=== PATIENT | female | born 1945 | race Caucasian/White ===

== ENCOUNTER 2021-02-20 04:37 | Emergency (ER) | payer BC, MEDICARE ==
[2021-02-20] MEDS ORDERED: Ondansetron 4 MG/2 ML SDV IVPUSH ONE (04:57)
[2021-02-20] MEDS ORDERED: Metoprolol Tartrate 25 MG Tab PO ONE (05:13)
--- NOTE | 2021-02-20 05:36 | EDM.PDOC ---
ED HPI GENERAL MEDICAL PROBLEM - General Chief Complaint: General Stated Complaint: DIZZY NAUSEAU Time Seen by Provider: 02/20/21 04:50 Source of Information: Reports: Patient, Family History Limitations: Reports: No Limitations - History of Present Illness INITIAL COMMENTS - FREE TEXT/NARRATIVE: Patient presented to the ED because of UE tremors. She said her hands and arms just shake non-stop and is bothering her. She denies having any motor or sensory deficits. She said this has been going on for years but is not beeing treated. 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: Musculoskeletal History: Reports: Arthritis - Past Surgical History Cardiovascular Surgical History: Reports: Coronary Artery Bypass Other Cardiovascular Surgeries/Procedures: 3 vessel in 97 Social & Family History - Tobacco Use Tobacco Use Status *Q: Current Every Day Tobacco User Years of Tobacco use: 50 Packs/Tins Daily: 0.2 - Caffeine Use Caffeine Use: Reports: Coffee - Recreational Drug Use Recreational Drug Use: No ED ROS GENERAL - Review of Systems Review Of Systems: See Below Constitutional: Reports: No Symptoms HEENT: Reports: No Symptoms Respiratory: Reports: No Symptoms Cardiovascular: Reports: No Symptoms Endocrine: Reports: No Symptoms GI/Abdominal: Reports: No Symptoms : Reports: No Symptoms Musculoskeletal: Reports: No Symptoms Skin: Reports: No Symptoms Neurological: Reports: Tremors Psychiatric: Reports: No Symptoms Hematologic/Lymphatic: Reports: No Symptoms Immunologic: Reports: No Symptoms ED EXAM, GENERAL - Physical Exam Exam: See Below Exam Limited By: No Limitations General Appearance: Alert, No Apparent Distress Ears: Normal External Exam, Normal Canal Nose: Normal Inspection, Normal Mucosa, No Blood Throat/Mouth: Normal Inspection, Normal Lips, Normal Teeth, Normal Gums Head: Atraumatic, Normocephalic Neck: Normal Inspection, Supple, Non-Tender, Full Range of Motion Respiratory/Chest: No Respiratory Distress, Lungs Clear, Normal Breath Sounds, No Accessory Muscle Use, Chest Non-Tender Cardiovascular: Normal Peripheral Pulses, Regular Rate, Rhythm, No Edema, No Gallop, No JVD, No Murmur, No Rub GI/Abdominal: Normal Bowel Sounds, Soft, Non-Tender, No Organomegaly, No Distention, No Abnormal Bruit Back Exam: Normal Inspection, Full Range of Motion Extremities: Normal Inspection, Non-Tender, No Pedal Edema, Normal Capillary Refill, Other Neurological: Alert, Oriented, CN II-XII Intact, Other (tremors) Psychiatric: Normal Affect #1 Interpretation EKG Date: 02/20/21 Time: 04:38 Rhythm: Other (Sinus Tach) Rate (Beats/Min): 102 [place]: Normal P-Wave: Present QRS: Normal ST-T: Normal QT: Normal PA/PQ Interval: 179 Comparison: No Change EKG Interpretation Comments: Sinus Tach Course - Vital Signs Text/Narrative:: Lab and EKG result was reviewed with patient and her family Mysoline 100 mg PO x1 Klonopin 0.5 mg PO x1 Metoprolol tartrate 25 mg PO x1 NS 1 L bolus Last Recorded V/S: Last Vital Signs Temp 37.2 C 02/20/21 04:40 Pulse 88 02/20/21 05:22 Resp 28 H 02/20/21 04:40 BP 137/111 H 02/20/21 05:22 Pulse Ox 100 02/20/21 04:40 - Orders/Labs/Meds Orders: Active Orders 24 hr Category Date Time Status EKG 12 Lead [EK] Routine Ther 02/20/21 04:47 Ordered Labs: Laboratory Tests 02/20/21 02/20/21 02/20/21 Range/Units 05:05 05:05 05:05 WBC 5.8 (3.0-10.3) x10-3/uL RBC 4.35 (3.60-5.20) x10(6)uL Hgb 13.4 (11.4-15.5) g/dL Hct 40.5 (34.2-48.2) % MCV 93.0 (76.7-100.5) fL MCH 30.8 (23.9-33.9) pg MCHC 33.1 (31.9-34.8) g/dL RDW 13.5 (12.3-16.5) % Plt Count 310 (151-488) x10(3)uL MPV 6.9 L (7.1-12.4) fL Neut % (Auto) 70.9 (30.8-76.2) % Lymph % (Auto) 18.7 (18.4-52.1) % [place] % (Auto) 8.4 (4.4-15.7) % Eos % (Auto) 1.4 (0.6-8.1) % Baso % (Auto) 0.6 (0.2-1.5) % Neut # (Auto) 4.1 (1.5-6.3) x10-3/uL Lymph # (Auto) 1.1 (1.0-4.4) x10-3/uL [place] # (Auto) 0.5 (0.3-1.0) x10-3/uL Eos # (Auto) 0.1 (0.0-0.8) x10-3/uL Baso # (Auto) 0.0 (0.0-0.1) x10-3/uL Sodium 142 (135-145) mmol/L Potassium 4.8 (3.5-5.3) mmol/L Chloride 103 (100-110) mmol/L Carbon Dioxide 29 (21-32) mmol/L BUN 25 H (7-18) mg/dL Creatinine 1.3 H (0.55-1.02) mg/dL Est Cr Clr Drug Dosing TNP Estimated GFR (MDRD) 40 L (>60) BUN/Creatinine Ratio 19.2 (9-20) Glucose 143 H (80-116) mg/dL Calcium 9.3 (8.6-10.2) mg/dL Total Bilirubin 0.5 (0.1-1.3) mg/dL AST 20 (5-25) IU/L ALT 19 (12-36) U/L Alkaline Phosphatase 78 (56-112) IU/L Troponin I 6.7 (4.0-60.3) pg/mL Total Protein 7.5 (6.0-8.0) g/dL Albumin 3.7 (3.2-4.6) g/dL Globulin 3.8 g/dL Albumin/Globulin Ratio 1.0 Meds: Medications Discontinued Medications Generic Name Dose Route Start Last Admin Trade Name Tyson PRRadha Reason Stop Dose Admin Clonazepam 0.5 mg 02/20/21 05:39 02/20/21 05:51 Clonazepam 0.5 Mg Tab PO 02/20/21 05:40 0.5 mg NOW STA Administration Sodium Chloride 1,000 mls @ 999 mls/hr 02/20/21 05:45 02/20/21 05:51 Normal Saline IV 999 mls/hr ASDIRECTED KRISTI Administration Metoprolol Tartrate 25 mg 02/20/21 05:13 02/20/21 05:22 Metoprolol Tartrate 25 Mg Tab PO 02/20/21 05:14 25 mg ONETIME ONE Administration Ondansetron HCl 4 mg 02/20/21 04:57 02/20/21 05:01 Ondansetron 4 Mg/2 Ml Sdv IVPUSH 02/20/21 04:58 4 mg ONETIME ONE Administration Primidone 250 mg 02/20/21 05:39 02/20/21 06:01 Primidone 250 Mg Tab PO 02/20/21 05:40 Not Given ONETIME ONE Primidone 100 mg 02/20/21 06:01 02/20/21 06:03 Primidone 50 Mg Tab PO 02/20/21 06:02 100 mg NOW STA Administration Departure - Departure Time of Disposition: 07:00 Disposition: Home, Self-Care 01 Condition: Good Clinical Impression: Benign essential tremor, Dehydration - Discharge Information Prescriptions: Primidone [Mysoline] 100 mg PO BEDTIME #30 tab Instructions: Essential Tremor, Dehydration, Elderly, [id number] Referrals: PCP,None [Primary Care Provider] - Forms: ED Department Discharge Additional Instructions: Please read discharge instructions on Benign Essential Tremor and dehydration Take mysoline 100 mg at bedtime for your tremors Follow up as needed Sepsis Event Note (ED) - Evaluation Sepsis Screening Result: No Definite Risk - Focused Exam Vital Signs: Vital Signs Temp Pulse Pulse Resp BP BP Pulse Ox 02/20/21 05:22 88 137/111 H 02/20/21 04:40 37.2 C 89 28 H 164/86 H 100 - My Orders Last 24 Hours: My Active Orders 02/20/21 04:47 EKG 12 Lead [EK] Routine - Assessment/Plan Last 24 Hours: My Active Orders 02/20/21 04:47 EKG 12 Lead [EK] Routine
[2021-02-20] MEDS ORDERED: Primidone 250 MG Tab PO ONE (05:39)
[2021-02-20] MEDS ORDERED: ClonazePAM 0.5 MG Tab PO STA (05:39)
[2021-02-20] MEDS ORDERED: Sodium Chloride 0.9% 1,000 ML IV SCH (05:45)
[2021-02-20] MEDS ORDERED: Primidone 50 MG Tab PO STA (06:01)
== END 2021-02-20 07:20 | disposition home or self-care (01) ==
LOC: FB.ED 04:37
DX: G25.0 Essential tremor (principal); E86.0 Dehydration; E78.00 Pure hypercholesterolemia, unspecified; I25.2 Old myocardial infarction; J44.9 Chronic obstructive pulmonary disease, unspecified; Z72.0 Tobacco use; Z95.1 Presence of aortocoronary bypass graft; Z88.2 Allergy status to sulfonamides; Z79.82 Long term (current) use of aspirin; Z79.899 Other long term (current) drug therapy
CPT/HCPCS: 36415; 80053; 84484; 85025; 93005; 96374; 99284-25; A9270-GY; J2405; J7030

== ENCOUNTER 2021-07-14 17:16 | Emergency (ER) | payer MEDICARE ==
[2021-07-14] MEDS ORDERED: Sodium Chloride 0.9% 10 ML Syringe FLUSH PRN (17:51)
[2021-07-14] MEDS ORDERED: Sodium Chloride 0.9% 1,000 ML IV SCH (18:00)
[2021-07-14] MEDS ORDERED: Sodium Chloride 0.9% 1,000 ML IV ONE (19:36)
--- NOTE | 2021-07-14 19:45 | EDM.PDOC ---
ED HPI GENERAL MEDICAL PROBLEM - General Chief Complaint: General Stated Complaint: DEHYDRATED, SHAKES, CHILLS Time Seen by Provider: 07/14/21 17:20 Source of Information: Reports: Patient, Family History Limitations: Reports: No Limitations - History of Present Illness INITIAL COMMENTS - FREE TEXT/NARRATIVE: Patient presented to the ED because of not feeling well for 1 week. She c/o cough that is non productive, denies dyspnea. She also have essential tremor which is getting worse recently. There is no fever, chills, N/V/D, no urinary s/s. general Pain Score (Numeric/FACES): 4 - Related Data Allergies Allergy/AdvReac Type Severity Reaction Status Date / Time Sulfa (Sulfonamide Allergy Cannot Verified 07/14/21 18:07 Antibiotics) Remember Home Meds: Home Meds Aspirin 81 mg PO DAILY 02/20/21 [History] Metoprolol Succinate 12.5 mg PO DAILY 02/20/21 [History] Primidone [Mysoline] 100 mg PO BEDTIME #30 tab 02/20/21 [Rx] Rosuvastatin [Crestor] 10 mg PO DAILY 02/20/21 [History] Azithromycin [Zithromax] 250 mg PO DAILY #6 tablet 07/14/21 [Rx] predniSONE [Prednisone] 20 mg PO DAILY #5 tablet 07/14/21 [Rx] Past Medical History HEENT History: Reports: Impaired Vision Cardiovascular History: Reports: Angina, Bypass, High Cholesterol, [place] Respiratory History: Reports: 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: Musculoskeletal History: Reports: Arthritis - Past Surgical History Cardiovascular Surgical History: Reports: Coronary Artery Bypass Other Cardiovascular Surgeries/Procedures: 3 vessel in 97 Social & Family History - Tobacco Use Tobacco Use Status *Q: Current Every Day Tobacco User Years of Tobacco use: 40 Packs/Tins Daily: 0.5 - Caffeine Use Caffeine Use: Reports: Coffee ED ROS GENERAL - Review of Systems Review Of Systems: See Below Constitutional: Reports: No Symptoms, Weakness HEENT: Reports: No Symptoms Respiratory: Reports: Cough Cardiovascular: Reports: No Symptoms, Palpitations GI/Abdominal: Reports: No Symptoms : Reports: No Symptoms Musculoskeletal: Reports: No Symptoms Skin: Reports: No Symptoms ED EXAM, GENERAL - Physical Exam Exam: See Below Exam Limited By: No Limitations General Appearance: Alert, No Apparent Distress Ears: Normal External Exam, Normal Canal, Normal TMs Nose: Normal Inspection, Normal Mucosa, No Blood Throat/Mouth: Normal Inspection, Normal Lips, Normal Teeth, Normal Oropharynx, Normal Voice Head: Atraumatic, Normocephalic Neck: Normal Inspection, Supple, Non-Tender, Full Range of Motion Respiratory/Chest: No Respiratory Distress, No Accessory Muscle Use, Chest Non- Tender, Rhonchi, Wheezing Cardiovascular: Normal Peripheral Pulses, Regular Rate, Rhythm, No Edema, No JVD, No Murmur, No Rub GI/Abdominal: Normal Bowel Sounds, Soft, Non-Tender, No Organomegaly, No Distention, No Abnormal Bruit, No Mass Extremities: Normal Inspection, Normal Range of Motion, Non-Tender, No Pedal Edema, Normal Capillary Refill Neurological: Alert, Oriented, CN II-XII Intact, Normal Cognition, Normal Gait, Normal Reflexes, No Motor/Sensory Deficits Psychiatric: Normal Affect, Normal Mood Skin Exam: Warm, Dry, Intact, Normal Color Course - Vital Signs Text/Narrative:: Lab/CXR result was reviewed and discussed with patient and her family NS 1 L bolus Last Recorded V/S: Last Vital Signs Temp 36.7 C 07/14/21 20:00 Pulse 98 07/14/21 20:00 Resp 18 07/14/21 20:00 BP 128/69 07/14/21 20:00 Pulse Ox 94 L 07/14/21 20:00 - Orders/Labs/Meds Orders: Active Orders 24 hr Category Date Time Status Chest 1V Frontal [CR] Stat Exams 07/14/21 17:51 Taken UA W/MICROSCOPIC [URIN] Stat Lab 07/14/21 17:51 Ordered Saline Lock Insert [OM.PC] Routine Oth 07/14/21 17:51 Ordered Labs: Laboratory Tests 07/14/21 07/14/21 07/14/21 Range/Units 17:51 18:05 18:05 WBC 9.4 (3.0-10.3) x10-3/uL RBC 3.90 (3.60-5.20) x10(6)uL Hgb 11.8 (11.4-15.5) g/dL Hct 35.6 (34.2-48.2) % MCV 91.4 (76.7-100.5) fL MCH 30.4 (23.9-33.9) pg MCHC 33.3 (31.9-34.8) g/dL RDW 13.2 (12.3-16.5) % Plt Count 406 (151-488) x10(3)uL MPV 6.4 L (7.1-12.4) fL Add Manual Diff Yes Neutrophils % (Manual) 84 H (46-82) % Lymphocytes % (Manual) 5 L (13-37) % Monocytes % (Manual) 11 (4-12) % Sodium 141 (135-145) mmol/L Potassium 4.0 (3.5-5.3) mmol/L Chloride 101 (100-110) mmol/L Carbon Dioxide 29 (21-32) mmol/L BUN 22 H (7-18) mg/dL Creatinine 1.3 H (0.55-1.02) mg/dL Est Cr Clr Drug Dosing 17.88 mL/min Estimated GFR (MDRD) 40 L (>60) BUN/Creatinine Ratio 16.9 (9-20) Glucose 138 H (80-116) mg/dL Calcium 8.9 (8.6-10.2) mg/dL Total Bilirubin 0.5 (0.1-1.3) mg/dL AST 21 (5-25) IU/L ALT 19 (12-36) U/L Alkaline Phosphatase 106 (56-112) IU/L Troponin I (4.0-60.3) pg/mL Total Protein 7.5 (6.0-8.0) g/dL Albumin 2.6 L (3.2-4.6) g/dL Globulin 4.9 g/dL Albumin/Globulin Ratio 0.5 Urine Color [place] (YELLOW) Urine Appearance Clear (CLEAR) Urine pH 5.0 (5.0-6.5) Ur Specific [place] 1.020 (1.010-1.025) Urine Protein Trace (NEGATIVE) mg/dL Urine Glucose (UA) >1000 H (NORMAL) mg/dL Urine Ketones Negative (NEGATIVE) mg/dL Urine Occult Blood Negative (NEGATIVE) Urine Nitrite Negative (NEGATIVE) Urine Bilirubin Negative (NEGATIVE) Urine Urobilinogen 4 H (NEGATIVE) mg/dL Ur Leukocyte Esterase Negative (NEGATIVE) Urine RBC 0-5 (0-5) Urine WBC 0-5 (0-5) Ur Squamous Epith Cells Rare (NS,R,O) Urine Bacteria Few H (NS) 07/14/21 Range/Units 18:05 WBC (3.0-10.3) x10-3/uL RBC (3.60-5.20) x10(6)uL Hgb (11.4-15.5) g/dL Hct (34.2-48.2) % MCV (76.7-100.5) fL MCH (23.9-33.9) pg MCHC (31.9-34.8) g/dL RDW (12.3-16.5) % Plt Count (151-488) x10(3)uL MPV (7.1-12.4) fL Add Manual Diff Neutrophils % (Manual) (46-82) % Lymphocytes % (Manual) (13-37) % Monocytes % (Manual) (4-12) % Sodium (135-145) mmol/L Potassium (3.5-5.3) mmol/L Chloride (100-110) mmol/L Carbon Dioxide (21-32) mmol/L BUN (7-18) mg/dL Creatinine (0.55-1.02) mg/dL Est Cr Clr Drug Dosing mL/min Estimated GFR (MDRD) (>60) BUN/Creatinine Ratio (9-20) Glucose (80-116) mg/dL Calcium (8.6-10.2) mg/dL Total Bilirubin (0.1-1.3) mg/dL AST (5-25) IU/L ALT (12-36) U/L Alkaline Phosphatase (56-112) IU/L Troponin I 5.8 (4.0-60.3) pg/mL Total Protein (6.0-8.0) g/dL Albumin (3.2-4.6) g/dL Globulin g/dL Albumin/Globulin Ratio Urine Color (YELLOW) Urine Appearance (CLEAR) Urine pH (5.0-6.5) Ur Specific [place] (1.010-1.025) Urine Protein (NEGATIVE) mg/dL Urine Glucose (UA) (NORMAL) mg/dL Urine Ketones (NEGATIVE) mg/dL Urine Occult Blood (NEGATIVE) Urine Nitrite (NEGATIVE) Urine Bilirubin (NEGATIVE) Urine Urobilinogen (NEGATIVE) mg/dL Ur Leukocyte Esterase (NEGATIVE) Urine RBC (0-5) Urine WBC (0-5) Ur Squamous Epith Cells (NS,R,O) Urine Bacteria (NS) Meds: Medications Discontinued Medications Generic Name Dose Route Start Last Admin Trade Name Tyson PRN Reason Stop Dose Admin Sodium Chloride 1,000 mls @ 999 mls/hr 07/14/21 18:00 07/14/21 18:15 Normal Saline IV 999 mls/hr ASDIRECTED KRISTI Administration Sodium Chloride 1,000 mls @ 999 mls/hr 07/14/21 19:36 07/14/21 19:16 Normal Saline IV 07/14/21 20:36 999 mls/hr .BOLUS ONE Administration Sodium Chloride 10 ml 07/14/21 17:51 07/14/21 18:15 Sodium Chloride 0.9% 10 Ml Syringe FLUSH 10 ml ASDIRECTED PRN Administration Keep Vein Open Departure - Departure Time of Disposition: 19:40 Disposition: Home, Self-Care 01 Condition: Good Clinical Impression: COPD (chronic obstructive pulmonary disease), Gastroenteritis, Dehydration - Discharge Information Prescriptions: predniSONE [Prednisone] 20 mg PO DAILY #5 tablet Azithromycin [Zithromax] 250 mg PO DAILY #6 tablet Instructions: Chronic Obstructive Pulmonary Disease Exacerbation, [id number], Viral Gastroenteritis, Adult, [id number], Dehydration, Elderly Referrals: PCP,None [Primary Care Provider] - Forms: ED Department Discharge Additional Instructions: Please read discharge instructions on COPD and Gastroenteritis(stomach Flu) Zithromax take as directed for 5 days Prednisone 20 mg daily for 5 days Increase fluid intake Follow up as needed Sepsis Event Note (ED) - Evaluation Sepsis Screening Result: No Definite Risk - My Orders Last 24 Hours: My Active Orders 07/14/21 17:51 Chest 1V Frontal [CR] Stat UA W/MICROSCOPIC [URIN] Stat Saline Lock Insert [OM.PC] Routine - Assessment/Plan Last 24 Hours: My Active Orders 07/14/21 17:51 Chest 1V Frontal [CR] Stat UA W/MICROSCOPIC [URIN] Stat Saline Lock Insert [OM.PC] Routine
== END 2021-07-14 20:10 | disposition home or self-care (01) ==
LOC: FB.ED 17:16
DX: J44.1 Chronic obstructive pulmonary disease with (acute) exacerbation (principal); K52.9 Noninfective gastroenteritis and colitis, unspecified; E86.0 Dehydration; E78.00 Pure hypercholesterolemia, unspecified; I25.2 Old myocardial infarction; J44.9 Chronic obstructive pulmonary disease, unspecified; Z72.0 Tobacco use; Z88.2 Allergy status to sulfonamides; Z79.82 Long term (current) use of aspirin; Z79.899 Other long term (current) drug therapy; Z95.1 Presence of aortocoronary bypass graft
CPT/HCPCS: 36415; 71045; 80053; 81001; 84484; 85025; 99284; J7030

== ENCOUNTER 2023-01-17 19:25 | Emergency (ER) | payer MEDICARE ==
[2023-01-17] MEDS ORDERED: Albuterol 8 GM Inhaler INH ONE (19:26)
[2023-01-17] MEDS ORDERED: Albuterol 6.7 GM Inhaler INH ONE (19:26)
[2023-01-17] MEDS ORDERED: Albuterol/Ipratropium 3.0-0.5 MG/3 ML Neb Soln NEB ONE ×2 (19:31→21:02)
[2023-01-17] MEDS ORDERED: methylPREDNISolone Sodium Succinate 125 MG/2 ML SDV IM ONE (19:31)
[2023-01-17 20:13] LABS: BASOPHILS PERCENT AUTO 0.6 % (0.2-1.5); BLOOD UREA NITROGEN,BUN 33 mg/dL (7-18); CALCIUM 9.6 mg/dL (8.6-10.2); CARBON DIOXIDE,CO2 28 mmol/L (21-32); CHLORIDE,CL 102 mmol/L (100-110); CREATININE 1.5 mg/dL (0.55-1.02); EOSINOPHILS ABSOLUTE AUTO 0.1 x10-3/uL (0.0-0.8); EOSINOPHILS PERCENT AUTO 2.4 % (0.6-8.1); EST CRCL DRUG DOSING (CG) 19.23 mL/min; ESTIMATED GFR 35 mL/min (>60); GLUCOSE RANDOM 118 mg/dL (80-116); HEMATOCRIT 42.1 % (34.2-48.2); LYMPHOCYTES ABSOLUTE AUTO 1.3 x10-3/uL (1.0-4.4); LYMPHOCYTES PERCENT AUTO 21.4 % (18.4-52.1); MEAN CORPUSCULAR HEMOGLOBIN 29.1 pg (23.9-33.9); MEAN CORPUSCULAR HGB CONC 33.3 g/dL (31.9-34.8); MEAN CORPUSCULAR VOLUME 87.4 fL (76.7-100.5); MEAN PLATELET VOLUME 7.1 fL (7.1-12.4); MONOCYTES ABSOLUTE AUTO 0.8 x10-3/uL (0.3-1.0); MONOCYTES PERCENT AUTO 13.2 % (4.4-15.7); NEUTROPHILS ABSOLUTE AUTO 3.8 x10-3/uL (1.5-6.3); NEUTROPHILS PERCENT AUTO 62.4 % (30.8-76.2); PLATELET COUNT,PLT 347 x10(3)uL (151-488); POTASSIUM,K 4.9 mmol/L (3.5-5.3); RED BLOOD CELL COUNT 4.81 x10(6)uL (3.60-5.20); RED CELL DISTRIBUTION WIDTH 14.4 % (12.3-16.5); SODIUM,NA 140 mmol/L (135-145); WHITE BLOOD CELL COUNT,WBC 6.2 x10-3/uL (3.0-10.3)
[2023-01-17 20:19] LABS: ALANINE AMINOTRANSFERASE,ALT 14 U/L (12-36); ALBUMIN 3.9 g/dL (3.2-4.6); ALKALINE PHOSPHATASE 87 IU/L (56-112); ASPARTATE AMNIOTRANSFERASE,AST 18 IU/L (5-25); BILIRUBIN TOTAL 0.4 mg/dL (0.1-1.3); PROTEIN TOTAL,TP 7.8 g/dL (6.0-8.0)
[2023-01-17 20:28] LABS: TROPONIN I 6.5 pg/mL (4.0-60.3)
[2023-01-17 20:49] LABS: INFLUENZA A NAA NEGATIVE (NEGATIVE); INFLUENZA B NAA NEGATIVE (NEGATIVE)
[2023-01-17 20:55] LABS: CORONAVIRUS COVID-19 NAA NEGATIVE (NEGATIVE)
== END 2023-01-17 21:44 | disposition home or self-care (01) ==
LOC: FB.ED 19:25
DX: E86.0 Dehydration (principal); J44.1 Chronic obstructive pulmonary disease with (acute) exacerbation; R09.1 Pleurisy; I25.2 Old myocardial infarction; J44.9 Chronic obstructive pulmonary disease, unspecified; K21.9 Gastro-esophageal reflux disease without esophagitis; Z88.2 Allergy status to sulfonamides; Z79.82 Long term (current) use of aspirin; Z20.822 Contact with and (suspected) exposure to COVID-19; Z87.891 Personal history of nicotine dependence
CPT/HCPCS: 0240U; 36415; 71045; 80053; 83880; 84484; 85025; 93005; 94640; 96372; 99285; A9270; J2930; J7620

== ENCOUNTER 2024-07-15 13:23 | Inpatient (IN) | payer MEDICARE ==
[2024-07-15] MEDS: Sodium Chloride 0.9% 1,000 ML IV SCH ×3 (13:53→17:52)
[2024-07-15] MEDS: Ondansetron 4 MG/2 ML SDV IVPUSH ONE (13:53)
[2024-07-15 14:08] LABS: HEMOGLOBIN 12.2 g/dL (11.4-15.5); MEAN CORPUSCULAR HEMOGLOBIN 30.3 pg (23.9-33.9); MEAN CORPUSCULAR VOLUME 89.1 fL (76.7-100.5); MEAN PLATELET VOLUME 7.5 fL (7.1-12.4); PLATELET COUNT,PLT 397 x10(3)uL (151-488); RED BLOOD CELL COUNT 4.04 x10(6)uL (3.60-5.20); RED CELL DISTRIBUTION WIDTH 14.2 % (12.3-16.5); WHITE BLOOD CELL COUNT,WBC 11.5 x10-3/uL (3.0-10.3)
[2024-07-15 14:13] LABS: BLOOD UREA NITROGEN,BUN 66 mg/dL (7-18); CALCIUM 10.1 mg/dL (8.6-10.2); CARBON DIOXIDE,CO2 24 mmol/L (21-32); CHLORIDE,CL 105 mmol/L (100-110); CREATININE 1.5 mg/dL (0.55-1.02); EST CRCL DRUG DOSING (CG) 16.43 mL/min; ESTIMATED GFR 35 mL/min (>60); GLUCOSE RANDOM 150 mg/dL (80-116); POTASSIUM,K 3.9 mmol/L (3.5-5.3); SODIUM,NA 143 mmol/L (135-145)
[2024-07-15 14:20] LABS: A/G RATIO 0.5; ALANINE AMINOTRANSFERASE,ALT 17 U/L (12-36); ALBUMIN 2.7 g/dL (3.2-4.6); ALKALINE PHOSPHATASE 105 IU/L (56-112); ASPARTATE AMNIOTRANSFERASE,AST 26 IU/L (5-25); BILIRUBIN TOTAL 0.7 mg/dL (0.1-1.3); PROTEIN TOTAL,TP 7.9 g/dL (6.0-8.0)
[2024-07-15 14:35] LABS: BAND PERCENT MAN 4 % (0-6); EOSINOPHILS PERCENT MAN 1 % (0-5); LYMPHOCYTES PERCENT MAN 5 % (13-37); MONOCYTES PERCENT MAN 7 % (4-12); SEG NEUTROPHILS PERCENT MAN 83 % (46-82)
[2024-07-15] MEDS: Piperacillin/Tazobactam 4.5 GM in Sodium Chloride 0.9% 100 ML IV ONE (14:35)
[2024-07-15] MEDS: VANCOmycin 750 MG in Sodium Chloride 0.9% 250 ML IV ONE (15:33)
[2024-07-15 16:12] LABS: BILIRUBIN,URINE NEGATIVE (NEGATIVE); GLUCOSE,URINE 250 mg/dL (NORMAL); KETONES,URINE NEGATIVE (NEGATIVE); LEUKOCYTE ESTERASE,URINE NEGATIVE (NEGATIVE); NITRITE,URINE NEGATIVE (NEGATIVE); OCCULT BLOOD,URINE MODERATE (NEGATIVE); PROTEIN,URINE TRACE mg/dL (NEGATIVE); UROBILINOGEN,URINE NORMAL (NEGATIVE)
[2024-07-15 16:14] LABS: APPEARANCE,URINE CLEAR (CLEAR); COLOR,URINE YELLOW (YELLOW)
[2024-07-15 16:15] LABS: BACTERIA,URINE FEW (NS); SQUAMOUS EPITHELIAL CELLS,UR FEW (NS,R,O); WBC,URINE 0-5 (0-5)
[2024-07-15] MEDS ORDERED: Albuterol 0.083% 2.5 MG/3 ML Neb Soln NEB PRN (16:41)
[2024-07-15] MEDS ORDERED: Ondansetron 4 MG/2 ML SDV IV PRN (16:41)
[2024-07-15] MEDS: Albuterol/Ipratropium 3.0-0.5 MG/3 ML Neb Soln NEB ONE (16:41)
[2024-07-15] MEDS ORDERED: Sennosides/Docusate Sodium 50-8.6 MG Tab PO PRN (16:41)
[2024-07-15] MEDS: Enoxaparin 30 MG/0.3 ML Syringe SUBCUT SCH (17:52)
[2024-07-15] MEDS: Piperacillin/Tazobactam 4.5 GM in Sodium Chloride 0.9% 100 ML IV SCH (17:52)
[2024-07-15] MEDS: Acetaminophen 325 MG Tab PO PRN (19:23)
[2024-07-15] MEDS: Albuterol/Ipratropium 3.0-0.5 MG/3 ML Neb Soln NEB SCH (20:12)
[2024-07-15] MEDS: Rosuvastatin 20 MG Tab PO SCH (20:12)
[2024-07-16 06:22] LABS: HEMATOCRIT 29.6 % (34.2-48.2); HEMOGLOBIN 9.8 g/dL (11.4-15.5); MEAN CORPUSCULAR HEMOGLOBIN 29.8 pg (23.9-33.9); MEAN CORPUSCULAR HGB CONC 33.2 g/dL (31.9-34.8); MEAN CORPUSCULAR VOLUME 89.7 fL (76.7-100.5); MEAN PLATELET VOLUME 6.9 fL (7.1-12.4); PLATELET COUNT,PLT 309 x10(3)uL (151-488); RED BLOOD CELL COUNT 3.31 x10(6)uL (3.60-5.20); RED CELL DISTRIBUTION WIDTH 14.9 % (12.3-16.5); WHITE BLOOD CELL COUNT,WBC 10.2 x10-3/uL (3.0-10.3)
[2024-07-16 06:32] LABS: A/G RATIO 0.5; ALANINE AMINOTRANSFERASE,ALT 17 U/L (12-36); ALKALINE PHOSPHATASE 77 IU/L (56-112); ASPARTATE AMNIOTRANSFERASE,AST 18 IU/L (5-25); BILIRUBIN TOTAL 0.4 mg/dL (0.1-1.3); BLOOD UREA NITROGEN,BUN 42 mg/dL (7-18); CALCIUM 8.4 mg/dL (8.6-10.2); CARBON DIOXIDE,CO2 26 mmol/L (21-32); CHLORIDE,CL 113 mmol/L (100-110); CREATININE 1.4 mg/dL (0.55-1.02); ESTIMATED GFR 38 mL/min (>60); GLUCOSE RANDOM 103 mg/dL (80-116); POTASSIUM,K 3.6 mmol/L (3.5-5.3); PROTEIN TOTAL,TP 6.1 g/dL (6.0-8.0); SODIUM,NA 146 mmol/L (135-145)
[2024-07-16 06:46] LABS: BAND PERCENT MAN 4 % (0-6); LYMPHOCYTES PERCENT MAN 4 % (13-37); METAMYELOCYTE PERCENT MAN 1 % (0-0); MONOCYTES PERCENT MAN 6 % (4-12); MYELOCYTE PERCENT MAN 1 % (0-0); SEG NEUTROPHILS PERCENT MAN 84 % (46-82); TOXIC GRANULATION FEW (NOT SEEN)
[2024-07-16] MEDS: Aspirin 81 MG Tab.EC PO SCH (08:37)
[2024-07-16] MEDS: Cyanocobalamin (Vitamin B12) 1,000 MCG Tab PO SCH (08:37)
[2024-07-16] MEDS: Meclizine 25 MG Tab PO SCH (08:38)
[2024-07-16] MEDS: Cyanocobalamin (Vitamin B12) 500 MCG Tab PO SCH (08:38)
[2024-07-16] MEDS: Sodium Chloride 0.9% 10 ML Syringe FLUSH PRN (08:57)
[2024-07-16] MEDS: cefTRIAXone 1 GM Vial IVPUSH SCH (08:58)
[2024-07-16] MEDS: Azithromycin 500 MG in Sodium Chloride 0.9% 250 ML IV SCH (09:47)
[2024-07-16] MEDS: Sodium Chloride 0.45% 1,000 ML IV SCH (11:04)
[2024-07-16] MEDS: Magnesium Hydroxide 400 MG/5 ML Susp 30 ML Cup PO PRN (20:27)
[2024-07-16] MEDS: Heparin Sodium 5,000 Units/ML Vial SUBCUT SCH (20:27)
[2024-07-16] MEDS: Rosuvastatin 10 MG Tab PO SCH (20:27)
[2024-07-17 06:21] LABS: MEAN CORPUSCULAR HEMOGLOBIN 30.1 pg (23.9-33.9); MEAN CORPUSCULAR HGB CONC 33.3 g/dL (31.9-34.8); MEAN CORPUSCULAR VOLUME 90.2 fL (76.7-100.5); MEAN PLATELET VOLUME 6.8 fL (7.1-12.4); PLATELET COUNT,PLT 313 x10(3)uL (151-488); RED BLOOD CELL COUNT 3.33 x10(6)uL (3.60-5.20); RED CELL DISTRIBUTION WIDTH 15.1 % (12.3-16.5); WHITE BLOOD CELL COUNT,WBC 10.8 x10-3/uL (3.0-10.3)
[2024-07-17 06:36] LABS: A/G RATIO 0.5; ALANINE AMINOTRANSFERASE,ALT 26 U/L (12-36); ALKALINE PHOSPHATASE 87 IU/L (56-112); ASPARTATE AMNIOTRANSFERASE,AST 39 IU/L (5-25); BILIRUBIN TOTAL 0.3 mg/dL (0.1-1.3); BLOOD UREA NITROGEN,BUN 24 mg/dL (7-18); BUN/CREATININE RATIO 18.5 (9-20); CALCIUM 8.4 mg/dL (8.6-10.2); CARBON DIOXIDE,CO2 26 mmol/L (21-32); CHLORIDE,CL 111 mmol/L (100-110); CREATININE 1.3 mg/dL (0.55-1.02); EST CRCL DRUG DOSING (CG) 22.74 mL/min; ESTIMATED GFR 41 mL/min (>60); GLUCOSE RANDOM 87 mg/dL (80-116); POTASSIUM,K 3.7 mmol/L (3.5-5.3); SODIUM,NA 145 mmol/L (135-145)
[2024-07-17 06:38] LABS: BAND PERCENT MAN 3 % (0-6); LYMPHOCYTES PERCENT MAN 15 % (13-37); METAMYELOCYTE PERCENT MAN 1 % (0-0); MONOCYTES PERCENT MAN 4 % (4-12); MYELOCYTE PERCENT MAN 1 % (0-0); SEG NEUTROPHILS PERCENT MAN 76 % (46-82)
[2024-07-17] MEDS: Benzonatate 100 MG Cap PO PRN (15:58)
[2024-07-18 06:49] LABS: HEMATOCRIT 27.8 % (34.2-48.2); HEMOGLOBIN 9.5 g/dL (11.4-15.5); MEAN CORPUSCULAR HEMOGLOBIN 30.4 pg (23.9-33.9); MEAN CORPUSCULAR HGB CONC 34.3 g/dL (31.9-34.8); MEAN CORPUSCULAR VOLUME 88.7 fL (76.7-100.5); MEAN PLATELET VOLUME 6.6 fL (7.1-12.4); PLATELET COUNT,PLT 338 x10(3)uL (151-488); RED BLOOD CELL COUNT 3.13 x10(6)uL (3.60-5.20); RED CELL DISTRIBUTION WIDTH 14.5 % (12.3-16.5); WHITE BLOOD CELL COUNT,WBC 9.7 x10-3/uL (3.0-10.3)
[2024-07-18 06:56] LABS: BLOOD UREA NITROGEN,BUN 12 mg/dL (7-18); CARBON DIOXIDE,CO2 29 mmol/L (21-32); CHLORIDE,CL 109 mmol/L (100-110); EST CRCL DRUG DOSING (CG) 30.01 mL/min; ESTIMATED GFR 57 mL/min (>60); GLUCOSE RANDOM 87 mg/dL (80-116); POTASSIUM,K 3.8 mmol/L (3.5-5.3); SODIUM,NA 144 mmol/L (135-145)
[2024-07-18 07:18] LABS: BAND PERCENT MAN 5 % (0-6); EOSINOPHILS PERCENT MAN 3 % (0-5); LYMPHOCYTES PERCENT MAN 15 % (13-37); MONOCYTES PERCENT MAN 5 % (4-12); SEG NEUTROPHILS PERCENT MAN 72 % (46-82)
[2024-07-19 06:46] LABS: HEMATOCRIT 29.9 % (34.2-48.2); MEAN CORPUSCULAR HEMOGLOBIN 29.9 pg (23.9-33.9); MEAN CORPUSCULAR HGB CONC 33.4 g/dL (31.9-34.8); MEAN CORPUSCULAR VOLUME 89.6 fL (76.7-100.5); MEAN PLATELET VOLUME 6.7 fL (7.1-12.4); PLATELET COUNT,PLT 382 x10(3)uL (151-488); RED BLOOD CELL COUNT 3.34 x10(6)uL (3.60-5.20); RED CELL DISTRIBUTION WIDTH 14.8 % (12.3-16.5); WHITE BLOOD CELL COUNT,WBC 7.8 x10-3/uL (3.0-10.3)
[2024-07-19 06:53] LABS: BLOOD UREA NITROGEN,BUN 9 mg/dL (7-18); CALCIUM 9.1 mg/dL (8.6-10.2); CARBON DIOXIDE,CO2 31 mmol/L (21-32); CHLORIDE,CL 107 mmol/L (100-110); CREATININE 0.9 mg/dL (0.55-1.02); EST CRCL DRUG DOSING (CG) 32.47 mL/min; ESTIMATED GFR 64 mL/min (>60); GLUCOSE RANDOM 89 mg/dL (80-116); POTASSIUM,K 4.1 mmol/L (3.5-5.3); SODIUM,NA 146 mmol/L (135-145)
[2024-07-19 07:05] LABS: BAND PERCENT MAN 7 % (0-6); LYMPHOCYTES PERCENT MAN 12 % (13-37); MONOCYTES PERCENT MAN 7 % (4-12); SEG NEUTROPHILS PERCENT MAN 74 % (46-82)
== END 2024-07-19 12:08 | disposition home or self-care (01) | DRG 871 ==
LOC: FB.ED 13:23 → FB.MS 17:23
PROVIDERS: ADMIT Emergency Medicine; ATTEND Internal Medicine
DX: A41.9 Sepsis, unspecified organism (principal); J18.9 Pneumonia, unspecified organism; E87.0 Hyperosmolality and hypernatremia; J44.9 Chronic obstructive pulmonary disease, unspecified; J44.0 Chronic obstructive pulmonary disease with (acute) lower respiratory infection; E78.5 Hyperlipidemia, unspecified; N17.9 Acute kidney failure, unspecified; I10 Essential (primary) hypertension; Z51.5 Encounter for palliative care; Z66 Do not resuscitate; E78.00 Pure hypercholesterolemia, unspecified; K21.9 Gastro-esophageal reflux disease without esophagitis; M19.90 Unspecified osteoarthritis, unspecified site; F17.210 Nicotine dependence, cigarettes, uncomplicated; E86.0 Dehydration; G25.0 Essential tremor; D64.9 Anemia, unspecified; R19.7 Diarrhea, unspecified; Z88.2 Allergy status to sulfonamides; Z79.51 Long term (current) use of inhaled steroids; Z79.899 Other long term (current) drug therapy; Z79.82 Long term (current) use of aspirin; I25.2 Old myocardial infarction; Z86.16 Personal history of COVID-19; Z98.49 Cataract extraction status, unspecified eye; Z98.890 Other specified postprocedural states; Z95.1 Presence of aortocoronary bypass graft
CPT/HCPCS: 36415; 71045; 80053; 81001; 83605; 84484; 85025; 86140; 87040 ×2; 87428; 93005; 96361; 96365; 96367; 96375; 99285; J2405; J2543; J3370; J3490; J7030 ×2; J7050; 80048; 93010; 94150; 94640; 97110-GP; 97161-GP; 97165-GO; 97530-GP; 99223; 99232; 99238; A9270-GY; J0456; J0696; J1644; J1650; J7620